=== PATIENT | female | born 1945 | race Asian ===

== ENCOUNTER 2019-03-08 14:23 | Emergency (ER) | payer OTHER ==
[~2019-03-08] VITALS: Ht 154.9 cm; Wt 59.9 kg
[~2019-03-08 14:23] MED LIST: ASPIR 8181 M1 PO; BACTRIM DS TAB1 EACH PO; BENADRYL25 MG PO; DILTIAZEM 24HR120 M2 PO; IMDUR 30 MG TAB30 M1 PO; NAPROSYN250 MG PO; NORCO 5-325 TA1 EACH PO; PEPCID40 MG PO; PREDNISONE 20 M20 MG PO; XANAX 0.25 MG0.25 MG PO
[2019-03-08 14:58] LABS: ABSOLUTE NEUTROPHILS 4.2 thou/uL (1.4-8.2); BASOPHILS 1.2 % (0.0-2.0); EOSINOPHILS 2.5 % (0.0-3.0); HEMATOCRIT 42.3 % (37.0-47.0); LYMPHOCYTES 36.2 % (24.0-44.0); MCH 29.3 pg (26.0-34.0); MCHC 33.2 g/dL (28.0-37.0); MONOCYTES 5.9 % (1.0-8.0); PLATELET COUNT 261 thou/uL (150-400); POLYS 54.2 % (36.0-66.0); RDW 12.8 % (10.5-14.5); WBC 7.8 thou/uL (4.0-11.0)
[2019-03-08 15:02] LABS: ANION GAP 5 mmol/L (7-16); BUN 14 mg/dL (7-18); CALCIUM 9.5 mg/dL (8.5-10.1); CHLORIDE 105 mmol/L (98-107); CO2 28 mmol/L (21-32); CREATININE 0.7 mg/dL (0.6-1.0); GLUCOSE 98 mg/dL (74-106); POTASSIUM 3.9 mmol/L (3.5-5.1); SODIUM 138 mmol/L (136-145)
[2019-03-08 15:10] LABS: TROPONIN-I <0.06 ng/mL (<0.06)
[2019-03-08 15:25] VITALS: BP 160/56
--- NOTE | 2019-03-09 11:15 | EKG ---
[address] [address] ELECTROCARDIOGRAM REPORT Name: AGUS SHORT [id number] Admission: 03/08/19 Attend Phys: Discharge: 03/08/19 Date of : 45 Report #: [id number] THIS REPORT FOR: //name// [facility] ED Test Date: 2019-03-08 Test Time: 14:30:32 Pat Name: AGUS SHORT Department: Room: Gender: F E/M Engineer: WG : 1945 Requested By: Abhishek Winters Order Number: [id number] MD: Kush Mills Measurements Intervals [place] Rate: 80 P: 65 WI: 162 QRS: 50 QRSD: 85 T: 46 QT: 375 QTc: 433 Interpretive Statements Sinus rhythm Anterior infarct, old Compared to ECG 05/26/2014 07:32:40 No significant changes Electronically Signed On 03-09-2019 11:15:35 ASSISTANT PROFESSOR OF RADIOLOGY by Kush Mills [email or web address] <ELECTRONICALLY SIGNED> By: Kush Mills MD 03/09/19 1115 1430 1430 Kush Mills MD /DANNY
== END 2019-03-08 15:25 | disposition home or self-care (01) ==
LOC: ER 14:23
PROVIDERS: Emergency Medicine
DX: R07.89 Other chest pain (principal); I10 Essential (primary) hypertension; E11.9 Type 2 diabetes mellitus without complications; Z79.82 Long term (current) use of aspirin; Z79.899 Other long term (current) drug therapy; Z90.49 Acquired absence of other specified parts of digestive tract

== ENCOUNTER 2019-04-23 20:14 | Emergency (ER) | payer OTHER ==
[~2019-04-23] VITALS: Ht 154.9 cm; Wt 59.0 kg
[2019-04-23 20:42] LABS: ABSOLUTE NEUTROPHILS 5.2 thou/uL (1.4-8.2); BASOPHILS 0.6 % (0.0-2.0); HEMATOCRIT 43.2 % (37.0-47.0); HEMOGLOBIN 14.3 gm/dL (12.0-15.0); LYMPHOCYTES 36.6 % (24.0-44.0); MCH 29.6 pg (26.0-34.0); MCV 89.8 fL (80.0-100.0); MONOCYTES 6.8 % (1.0-8.0); PLATELET COUNT 236 thou/uL (150-400); RBC 4.82 mil/uL (4.20-5.00); WBC 9.8 thou/uL (4.0-11.0)
[2019-04-23 20:55] LABS: ANION GAP 10 mmol/L (7-16); BUN 17 mg/dL (7-18); CALCIUM 9.7 mg/dL (8.5-10.1); CHLORIDE 102 mmol/L (98-107); CO2 26 mmol/L (21-32); CREATININE 0.8 mg/dL (0.6-1.0); GLUCOSE 92 mg/dL (74-106); POTASSIUM 3.7 mmol/L (3.5-5.1); SODIUM 138 mmol/L (136-145)
[2019-04-23 21:05] LABS: ALBUMIN 4.2 g/dL (3.4-5.0); SGOT 24 U/L (15-37); SGPT 31 U/L (30-65); TOTAL BILIRUBIN 0.4 mg/dL (<0.1-1.0); TOTAL PROTEIN 9.2 g/dL (6.4-8.2); TROPONIN-I <0.06 ng/mL (<0.06)
[2019-04-23] MEDS ORDERED: PROTONIX40 M1 PO (21:46)
[2019-04-23] MEDS ORDERED: MEDROLDOSEPACK PO (21:46)
[2019-04-23 22:36] VITALS: BP 131/67
--- NOTE | 2019-04-24 08:43 | EKG ---
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1945 Requested By: Ching Kelly Order Number: [id number] MD: Joseph Slaughter Measurements Intervals [place] Rate: 72 P: 59 PA: 178 QRS: 44 QRSD: 78 T: 51 QT: 379 QTc: 415 Interpretive Statements Sinus rhythm Probable anteroseptal infarct, old Compared to ECG 03/08/2019 14:30:32 No significant changes Electronically Signed On 04-24-2019 8:42:20 BASEBALL INSPECTOR AND REPAIRER by Joseph Slaughter [email or web address] <ELECTRONICALLY SIGNED> By: Joseph Slaughter MD, [facility] 04/24/19 0842 14 14 Joseph Slaughter MD, FACC /EPI
== END 2019-04-23 22:37 | disposition home or self-care (01) ==
LOC: ER 20:14
PROVIDERS: Physician Assistant
DX: K21.9 Gastro-esophageal reflux disease without esophagitis (principal); R07.89 Other chest pain; I10 Essential (primary) hypertension

== ENCOUNTER → 2019-07-29 | Outpatient (CLI) | payer OTHER ==
[~2019-07-29] MED LIST changes: +MEDROLDOSEPACK PO; +PROTONIX40 M1 PO
== END ==
LOC: SJCVCIMAG 11:18
DX: R94.31 Abnormal electrocardiogram [ECG] [EKG] (principal); I34.0 Nonrheumatic mitral (valve) insufficiency; I25.10 Atherosclerotic heart disease of native coronary artery without angina pectoris; E78.00 Pure hypercholesterolemia, unspecified; I10 Essential (primary) hypertension; M19.90 Unspecified osteoarthritis, unspecified site; Z90.49 Acquired absence of other specified parts of digestive tract; Z79.899 Other long term (current) drug therapy

== ENCOUNTER → 2019-09-17 | Outpatient (CLI) | payer OTHER | LOC: SJCVC 14:26 | PROVIDERS: ATTEND Internal Medicine Cardiovascular Disease | DX: I10 Essential (primary) hypertension (principal); E78.00 Pure hypercholesterolemia, unspecified; I25.10 Atherosclerotic heart disease of native coronary artery without angina pectoris; R93.1 Abnormal findings on diagnostic imaging of heart and coronary circulation; M19.90 Unspecified osteoarthritis, unspecified site; Z86.79 Personal history of other diseases of the circulatory system; Z79.82 Long term (current) use of aspirin; Z79.899 Other long term (current) drug therapy; Z82.49 Family history of ischemic heart disease and other diseases of the circulatory system ==

== ENCOUNTER 2019-10-24 12:32 | Emergency (ER) | payer OTHER ==
[~2019-10-24] VITALS: Ht 154.9 cm; Wt 57.1 kg
[2019-10-24 14:13] LABS: POLYS 71.9 % (36.0-66.0); RDW 12.9 % (10.5-14.5)
[2019-10-24 14:14] LABS: BASOPHILS 0.6 % (0.0-2.0); EOSINOPHILS 0.9 % (0.0-3.0); HEMOGLOBIN 14.5 gm/dL (12.0-15.0); LYMPHOCYTES 22.2 % (24.0-44.0); MCH 29.8 pg (26.0-34.0); MCV 90.3 fL (80.0-100.0); MONOCYTES 4.4 % (1.0-8.0); PLATELET COUNT 262 thou/uL (150-400); RBC 4.88 mil/uL (4.20-5.00); WBC 13.3 thou/uL (4.0-11.0)
[2019-10-24 14:18] LABS: URINE BILIRUBIN NEGATIVE (Negative); URINE BLOOD 3+ (Negative); URINE CLARITY CLEAR; URINE COLOR YELLOW; URINE GLUCOSE-RANDOM* NEGATIVE (Negative); URINE KETONES NEGATIVE (Negative); URINE LEUKOCYTES-REFLEX NEGATIVE (Negative); URINE NITRITE-REFLEX NEGATIVE (Negative); URINE PROTEIN (DIPSTICK) NEGATIVE (Negative); URINE SPECIFIC GRAVITY <= 1.005 (1.005-1.035); URINE UROBILINOGEN 0.2 E.U./dl (0.2-1.0)
[2019-10-24 14:24] LABS: ANION GAP 11 mmol/L (7-16); BUN 12 mg/dL (7-18); CALCIUM 9.1 mg/dL (8.5-10.1); CHLORIDE 104 mmol/L (98-107); CO2 24 mmol/L (21-32); CREATININE 0.6 mg/dL (0.6-1.0); GLUCOSE 88 mg/dL (74-106); POTASSIUM 4.3 mmol/L (3.5-5.1); SODIUM 139 mmol/L (136-145)
[2019-10-24 14:33] LABS: TROPONIN-I <0.06 ng/mL (<0.06)
[2019-10-24 14:44] LABS: CASTS None Seen /LPF (None Seen); CRYSTALS None Seen /LPF (None Seen); SQUAMOUS 0-3 Few /LPF (0-3); URINE RBC 0-2 Rare /HPF (0-2); URINE WBC-REFLEX None Seen /HPF (0-5)
[2019-10-24 14:45] LABS: BACTERIA-REFLEX 1-9 Few /HPF (None Seen)
--- NOTE | 2019-10-24 16:55 | EKG ---
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 : 1945 Requested By: Miguel Dong Order Number: [id number] MD: Joseph Slaughter Measurements Intervals [place] Rate: 73 P: 61 DE: 163 QRS: 41 QRSD: 90 T: 38 QT: 395 QTc: 436 Interpretive Statements Sinus rhythm Poor R wave progression Compared to ECG 04/23/2019 20:15:09 No significant changes Electronically Signed On 10-24-2019 16:55:26 CDT by Joseph Slaughter [email or web address] <ELECTRONICALLY SIGNED> By: Joseph Slaughter MD, FAC 10/24/19 1655 1343 1343 Joseph Slaughter MD, [facility] /EPI
[2019-10-24 17:17] VITALS: BP 120/71
== END 2019-10-24 17:15 | disposition home or self-care (01) ==
LOC: ER 12:32
PROVIDERS: Emergency Medicine
DX: R06.02 Shortness of breath (principal); I10 Essential (primary) hypertension; E11.9 Type 2 diabetes mellitus without complications; Z91.013 Allergy to seafood; Z79.82 Long term (current) use of aspirin; Z79.899 Other long term (current) drug therapy; Z90.49 Acquired absence of other specified parts of digestive tract

== ENCOUNTER → 2020-08-16 | Outpatient (CLI) | payer OTHER | LOC: SJCVCIMAG 09:05 | PROVIDERS: ATTEND Internal Medicine Cardiovascular Disease | DX: I08.1 Rheumatic disorders of both mitral and tricuspid valves (principal); I25.10 Atherosclerotic heart disease of native coronary artery without angina pectoris; E78.00 Pure hypercholesterolemia, unspecified; I10 Essential (primary) hypertension; R93.1 Abnormal findings on diagnostic imaging of heart and coronary circulation; M19.90 Unspecified osteoarthritis, unspecified site; Z90.49 Acquired absence of other specified parts of digestive tract; Z98.890 Other specified postprocedural states; Z79.82 Long term (current) use of aspirin; Z79.899 Other long term (current) drug therapy; Z86.79 Personal history of other diseases of the circulatory system; Z85.3 Personal history of malignant neoplasm of breast; Z82.49 Family history of ischemic heart disease and other diseases of the circulatory system ==

== ENCOUNTER → 2021-02-08 | Outpatient (CLI) | payer OTHER | LOC: SJCVC 15:48 | PROVIDERS: ATTEND Internal Medicine Cardiovascular Disease | DX: R94.31 Abnormal electrocardiogram [ECG] [EKG] (principal); R93.1 Abnormal findings on diagnostic imaging of heart and coronary circulation; E78.00 Pure hypercholesterolemia, unspecified; I10 Essential (primary) hypertension; Z86.79 Personal history of other diseases of the circulatory system; Z79.82 Long term (current) use of aspirin; Z79.899 Other long term (current) drug therapy; Z88.8 Allergy status to other drugs, medicaments and biological substances; E78.5 Hyperlipidemia, unspecified; Z95.818 Presence of other cardiac implants and grafts; Z82.49 Family history of ischemic heart disease and other diseases of the circulatory system ==